=== PATIENT | male | born 1995 | race Caucasian/White ===

== ENCOUNTER 2016-06-26 16:15 | Inpatient (IN) | payer OTHER ==
[~2016-06-26] VITALS: Ht 167.6 cm; Wt 63.0 kg
[2016-06-26 17:21] LABS: HEMOGLOBIN 14.4 gm/dl (14.0-17.5); RED BLOOD COUNT 4.71 M/UL (4.20-5.50); WHITE BLOOD COUNT 21.2 K/UL (4.5-11.0)
[2016-06-26 17:46] LABS: BUN/CREATININE RATIO 9 (0-10)
[2016-06-27 00:45] LABS: HEMOGLOBIN 12.6 gm/dl (14.0-17.5)
[2016-06-27 00:49] LABS: RED BLOOD COUNT 4.11 M/UL (4.20-5.50); WHITE BLOOD COUNT 13.3 K/UL (4.5-11.0)
[2016-06-27 06:09] LABS: RED BLOOD COUNT 4.23 M/UL (4.20-5.50); WHITE BLOOD COUNT 12.5 K/UL (4.5-11.0)
[2016-06-27 06:29] LABS: BUN/CREATININE RATIO 10 (0-10)
== END 2016-06-27 10:15 | disposition left against medical advice (07) | DRG 100 ==
LOC: ER1 16:15 → ZEROF 20:00 → MED SURG 4 20:00
PROVIDERS: Emergency Medicine; ADMIT Internal Medicine
DX: R56.9 Unspecified convulsions (principal); G92 Toxic encephalopathy; E87.2 Acidosis; F15.10 Other stimulant abuse, uncomplicated; R00.0 Tachycardia, unspecified; J40 Bronchitis, not specified as acute or chronic; D72.829 Elevated white blood cell count, unspecified; F12.90 Cannabis use, unspecified, uncomplicated; F17.210 Nicotine dependence, cigarettes, uncomplicated; Z88.2 Allergy status to sulfonamides; Z82.49 Family history of ischemic heart disease and other diseases of the circulatory system
CPT/HCPCS: 36415; 70450; 71010; 80053; 80307; 81001; 82550; 82553; 83605; 83874; 84443; 84484; 85025; 85027; 87040; 93005; 95819; 99285; J1953; J1956; J7030; J7050